=== PATIENT | female | born 1995 | race Caucasian/White ===

== ENCOUNTER → 2017-05-30 | Outpatient (CLI) | payer OTHER | LOC: M RAD 13:14 | DX: Z34.83 Encounter for supervision of other normal pregnancy, third trimester (principal); Z36.89 Encounter for other specified antenatal screening; Z3A.33 33 weeks gestation of pregnancy | CPT/HCPCS: 76811 ==

== ENCOUNTER → 2017-06-28 | Outpatient (REF) | payer OTHER | LOC: M LAB REF 13:04 | DX: Z34.83 Encounter for supervision of other normal pregnancy, third trimester (principal) | CPT/HCPCS: 87081 ==

== ENCOUNTER 2017-07-09 01:16 | Inpatient (IN) | payer OTHER ==
[2017-07-09 03:36] LABS: HEMATOCRIT 36.7 % (36.0-47.0); HEMOGLOBIN 12.3 g/dl (12.0-15.5); MEAN CORPUSCULAR HEMOGLOBIN 28.1 pg (27.0-33.0); MEAN CORPUSCULAR HGB CONC 33.5 g/dl (32.0-36.5); PLATELET COUNT, AUTOMATED 266 10^3/uL (150-450); RED BLOOD COUNT 4.37 10^6/uL (4.00-5.40); WHITE BLOOD COUNT 15.7 10^3/uL (4.0-10.0)
[2017-07-09] MEDS: LR 1,000 ML IV (04:24)
[2017-07-09] MEDS: FAMOTIDINE 20 MG TAB PO (05:18)
[2017-07-09] MEDS ORDERED: LR 1,000 ML IV (06:49)
[2017-07-09] MEDS ORDERED: DOCUSATE SODIUM 100 MG CAP PO (07:00)
[2017-07-09] MEDS ORDERED: ACETAMINOPHEN 500 MG TAB PO (07:00)
[2017-07-09] MEDS ORDERED: RHOGAM 300 MCG (1500 IU) INJ (J2790) IM (07:00)
[2017-07-09] MEDS ORDERED: DIBUCAINE 1% OINTMENT 30GM TOP (07:00)
[2017-07-09] MEDS ORDERED: MEASLES,MUMPS,RUBELLA VACCINE INJ (MMR-II) (90707) SC (07:00)
[2017-07-09] MEDS ORDERED: ONDANSETRON 4MG/2ML VIAL (J2405) IV (07:00)
[2017-07-09] MEDS ORDERED: PROMETHAZINE 25 MG TAB PO (07:00)
[2017-07-09] MEDS: IBUPROFEN 800 MG TAB PO (16:24)
[2017-07-10] MEDS: LACTATED RINGER'S 1000 ML IV (07:16)
[2017-07-10] MEDS: PRENATAL VITAMINS CHEWABLE TABLET PO ×2 (07:17→07:46)
[2017-07-10] MEDS: OXYTOCIN DRIP 30 UNITS in APPROPRIATE DILUENT 1 EA IV (07:17)
[2017-07-10] MEDS: IBUPROFEN 800 MG TAB PO (17:26)
== END 2017-07-10 17:40 | disposition home or self-care (01) | DRG 560 ==
LOC: M LDO 01:16 → M LDI 02:12 → M OBS 11:07
PROVIDERS: Obstetrics & Gynecology
PROC: 10E0XZZ Delivery of Products of Conception, External Approach (ICD-10-PCS; principal; 2017-07-09)
DX: O80 Encounter for full-term uncomplicated delivery (principal); Z37.0 Single live birth; Z3A.38 38 weeks gestation of pregnancy

== ENCOUNTER → 2018-02-07 | Outpatient (CLI) | payer OTHER ==
[~2018-02-07] MED LIST: IBUP-1114 PO; MAPA500T2 PO; PRENTAB9 PO; VALT500T PO
[2018-02-07 13:28] LABS: BASO % 0.4 % (0.0-1.0); EOS # 0.2 10^3/uL (0.0-0.50); EOS % 2.5 % (0.0-3.0); HEMATOCRIT 43.6 % (36.0-47.0); HEMOGLOBIN 14.7 g/dl (12.0-15.5); LYMPH # 2.2 10^3/uL (1.5-6.5); LYMPH % 26.2 % (24.0-44.0); MEAN CORPUSCULAR HEMOGLOBIN 29.2 pg (27.0-33.0); MEAN CORPUSCULAR HGB CONC 33.7 g/dl (32.0-36.5); MEAN CORPUSCULAR VOLUME 86.7 fl (80.0-96.0); MONO # 0.4 10^3/uL (0.0-0.8); MONO % 4.8 % (0.0-5.0); NEUTROPHILS # 5.5 10^3/uL (1.8-7.7); NEUTROPHILS % 65.7 % (36.0-66.0); PLATELET COUNT, AUTOMATED 248 10^3/uL (150-450); RED BLOOD COUNT 5.03 10^6/uL (4.00-5.40); WHITE BLOOD COUNT 8.4 10^3/uL (4.0-10.0)
[2018-02-07 13:51] LABS: ALT/SGPT 28 U/L (12-78); BILIRUBIN,TOTAL 0.2 MG/DL (0.2-1.0); CREATININE FOR GFR 0.55 MG/DL (0.55-1.30); GLOMERULAR FILTRATION RATE > 60.0 (>60); LDH LACTATE DEHYDROGENASE 170 U/L (84-246); URIC ACID 2.3 MG/DL (2.6-6.0)
[2018-02-07 14:10] LABS: RUBELLA IgG QUALITATIVE IMMUNE (IMMUNE)
[2018-02-07 14:31] LABS: TOTAL PROTEIN,RANDOM URINE 27.1 MG/DL (0.0-12.0)
[2018-02-07 14:39] LABS: HEPATITIS C VIRUS ABY INDEX 0.1 INDEX (<0.8); HIV 1&2 SCREEN CENTAUR NEGATIVE (NEGATIVE)
[2018-02-07 15:11] LABS: CHLAMYDIA DNA AMPLIFICATION NEGATIVE (NEGATIVE); GC DNA AMPLIFICATION NEGATIVE (NEGATIVE)
== END ==
LOC: M SMT 11:46
PROVIDERS: ATTEND Advanced Practice Midwife
DX: Z34.81 Encounter for supervision of other normal pregnancy, first trimester (principal); Z36.89 Encounter for other specified antenatal screening; Z3A.11 11 weeks gestation of pregnancy

== ENCOUNTER → 2018-02-27 | Outpatient (CLI) | payer OTHER ==
--- NOTE | 2018-02-28 04:56 | REP ---
Clinical: Anatomical evaluation. Comparison: None . Findings: Examination demonstrates a single live intrauterine in cephalic presentation. motion is identified by technologist. Placenta is noted posterior fundal and grade zero without evidence for placenta previa or abruption. Amniotic fluid volume is normal. Cervix measures 3.5 cm in length and appears closed. No evidence for nuchal cord. Gestational age by LMP 18 weeks 2 days with ANA 07/29/2018 . Gestational age by current measurements 18 weeks 3 days with ANA 07/28/2018 . FHR equals 136 beats per minute. BPD 4.1 cm 18 weeks 3 day HC 15.6 cm 18 weeks 4 days AC 12.8 cm 18 weeks 3 days FL 2.7 cm 18 weeks 2 days HL 2.6 cm 18 weeks 2 days HC/AC ratio 1.22 Estimated weight 235 grams ( 47 percentile). Anatomical assessment demonstrates normal structures including cranium, choroid plexus, cavum, cerebellum/posterior fossa, lungs, diaphragm, stomach, cord insertion/three-vessel cord, kidneys/bladder, spine, and extremities. Impression: 1. Single live intrauterine in cephalic presentation demonstrating appropriate interval growth. 2. Limited evaluation of the facial features and heart/ventricular outflow tract. Remainder of the anatomical assessment is complete and normal. Electronically Signed by Jimbo Mobley MD 02/28/2018 04:47 A
== END ==
LOC: M RAD 11:13
PROVIDERS: ATTEND Advanced Practice Midwife
DX: Z34.82 Encounter for supervision of other normal pregnancy, second trimester (principal); Z3A.18 18 weeks gestation of pregnancy

== ENCOUNTER → 2018-05-07 | Outpatient (CLI) | payer OTHER ==
--- NOTE | 2018-05-07 11:50 | REP ---
OB ULTRASOUND: Real-time sonographic evaluation of the gravid uterus is performed. There is a single living intrauterine gestation. Estimated gestational age is 28 weeks 1 day, EDC 07/29/2018. Today's measurements indicate appropriate growth. Biometry and Growth: BPD 70 mm = 28 weeks 0 days, 48th percentile HC 265 mm = 28 weeks 6 days, 65th percentile AC 241 mm = 28 weeks 3 days, 56th percentile FL 52 mm = 27 weeks 5 days, 40th percentile HC/AC ratio 1.10 within normal range. Estimated weight 1185 grams, 44th percentile. SEEN/GROSSLY UNREMARKABLE Lateral ventricles Yes Posterior fossa Yes Upper lip Yes Four-chamber heart Yes LVOT Yes RVOT Yes Stomach Yes Cord insertion Yes Three vessel cord Yes Kidneys Yes Bladder Yes Spine Yes Cervical length: Closed and measures 2.8 cm in length. heart rate: 149 beats per minute. position: Vertex, Placenta: Posterior and fundal and grade 1 with no previa or abruption. Amniotic fluid: Within normal limits, RONAK 16.1 within normal range of 9.4 to 22.8. S/D ratio: 4.03 above normal range of 2.5 to 3.95. RI: 0.75 at upper limits of normal range of 0.59 to 0.75. Electronically Signed by Ivan Yeager MD 05/07/2018 02:47 P
== END ==
LOC: M RAD 09:52
PROVIDERS: ATTEND Advanced Practice Midwife
DX: O99.512 Diseases of the respiratory system complicating pregnancy, second trimester (principal); Z3A.28 28 weeks gestation of pregnancy

== ENCOUNTER → 2018-07-06 | Outpatient (REF) | payer OTHER, MEDICAID ==
[~2018-07-06] MED LIST changes: +COLA100C5 PO
== END ==
LOC: M LAB REF 12:48
PROVIDERS: ATTEND Advanced Practice Midwife
DX: O99.333 Smoking (tobacco) complicating pregnancy, third trimester (principal); Z3A.00 Weeks of gestation of pregnancy not specified

== ENCOUNTER 2018-07-10 02:14 | Inpatient (IN) | payer OTHER, MEDICAID ==
[~2018-07-10] VITALS: Ht 162.6 cm; Wt 109.8 kg
[2018-07-10] VITALS (8 sets, daily range): BP systolic 109–137; BP diastolic 64–77
[~2018-07-10 02:14] MED LIST changes: -COLA100C5 PO
[2018-07-10] MEDS ORDERED: OXYTOCIN 30 UNITS IN 0.9% NaCl 500ML IV BAG (J2590) As Ordered ONE (02:49)
[2018-07-10 03:44] LABS: HEMATOCRIT 38.9 % (36.0-47.0); MEAN CORPUSCULAR HEMOGLOBIN 28.6 pg (27.0-33.0); MEAN CORPUSCULAR HGB CONC 33.4 g/dl (32.0-36.5); MEAN CORPUSCULAR VOLUME 85.7 fl (80.0-96.0); PLATELET COUNT, AUTOMATED 272 10^3/uL (150-450); RED BLOOD COUNT 4.54 10^6/uL (4.00-5.40); WHITE BLOOD COUNT 20.6 10^3/uL (4.0-10.0)
[2018-07-10] MEDS ORDERED: OXYTOCIN DRIP 30 UNITS in APPROPRIATE DILUENT 1 EA IV SCH (03:46)
[2018-07-10] MEDS ORDERED: MEASLES,MUMPS,RUBELLA VACCINE INJ (MMR-II) (90707) SC SCH (04:00)
[2018-07-10] MEDS ORDERED: METHYLERGONOVINE MALEATE 0.2 MG TAB PO PRN (04:00)
[2018-07-10] MEDS ORDERED: DIBUCAINE 1% OINTMENT 30GM TOP PRN (04:00)
[2018-07-10] MEDS ORDERED: RHOGAM 300 MCG (1500 IU) INJ (J2790) IM SCH (04:00)
[2018-07-10] MEDS ORDERED: ANUSOL HC CREAM 30GM TOP PRN (04:00)
[2018-07-10] MEDS ORDERED: IBUPROFEN 600 MG TAB PO PRN (04:00)
[2018-07-10] MEDS ORDERED: DOCUSATE SODIUM 100 MG CAP PO PRN (04:00)
[2018-07-10] MEDS ORDERED: ACETAMINOPHEN TAB 650MG DOSE (2X325MG) PO PRN (04:00)
[2018-07-10] MEDS ORDERED: ACETAMINOPHEN 500 MG TAB As Ordered ONE (04:11)
[2018-07-10] MEDS ORDERED: IBUPROFEN 800 MG TAB As Ordered ONE (04:11)
[2018-07-10] MEDS: ACETAMINOPHEN 500 MG TAB PO PRN ×2 (04:18→20:56)
[2018-07-10] MEDS: IBUPROFEN 800 MG TAB PO PRN ×2 (04:18→13:24)
[2018-07-10] MEDS ORDERED: CALCIUM CARBONATE 500 MG CHEW U/D As Ordered ONE (04:20)
[2018-07-10] MEDS ORDERED: CALCIUM CARBONATE 500 MG CHEW U/D PO ONE (04:30)
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
--- NOTE | 2018-07-10 05:23 | DN ---
DATE OF DELIVERY: 07/10/2018 Time of Delivery: 03:09 DATA: Spontaneous vaginal delivery. Delivered. PROVIDER: Monae Chacon CNM, WNP ANESTHESIA: None. EBL: 250 ML. FINDINGS: Male, 6 pounds, 1 ounce, 98577 grams, scores 9/9. The patient is a 23-year-old now 5, para 2-1-2-3 at 37 weeks, 2 days gestation who presented to labor and delivery in active labor. The patient progressed to fully dilated at 0305 after she was artificially ruptured at 0305 to a large amount of clear fluid. She pushed to a living male in the left occipitoanterior (JOE) position with restitution to left occipitotransverse (LOT) at 0309. The anterior shoulder delivered with ease, and the corpus immediately followed. The baby was placed [id number] active and crying with stimulation. The cord was clamped times two after 3 minutes and cut by the father of the baby. A three-vessel cord was noted. The placenta delivered spontaneously and intact at 0318. Uterine hemostasis was achieved via rapid infusion of intravenous (IV) Pitocin and uterine fundal massage. The cervix, perineum, and vagina were inspected and found to be intact. The mother plans to formula-feed her . They plan on naming him Ambrocio. Both mom and baby are in stable condition. All counts of sponges and instruments are correct. MTDD
[2018-07-10] MEDS: PRENATAL VITAMINS CHEWABLE TABLET PO SCH (07:47)
[2018-07-11 06:00] VITALS: BP 107/53
[2018-07-11] MEDS: IBUPROFEN 800 MG TAB PO PRN (06:21)
[2018-07-11] MEDS: PRENATAL VITAMINS CHEWABLE TABLET PO SCH (08:33)
[2018-07-11] MEDS: ACETAMINOPHEN 500 MG TAB PO PRN (16:12)
[2018-07-11 18:01] VITALS: BP 129/72
[2018-07-12] MEDS: ACETAMINOPHEN 500 MG TAB PO PRN (05:18)
[2018-07-12 05:47] VITALS: BP 110/64
[2018-07-12] MEDS: PRENATAL VITAMINS CHEWABLE TABLET PO SCH (08:28)
[2018-07-12] MEDS ORDERED: MAPA500T2 PO (11:18)
[2018-07-12] MEDS ORDERED: IBUP-1114 PO (11:18)
[2018-07-12] MEDS ORDERED: COLA100C5 PO (11:18)
== END 2018-07-12 11:33 | disposition home or self-care (01) | DRG 560 ==
LOC: M LDO 02:14 → M LDI 02:56 → M OBS 05:09
PROVIDERS: ADMIT Advanced Practice Midwife; ATTEND Advanced Practice Midwife
PROC: 10E0XZZ Delivery of Products of Conception, External Approach (ICD-10-PCS; principal; 2018-07-10)
DX: O98.52 Other viral diseases complicating childbirth (principal); B00.9 Herpesviral infection, unspecified; Z3A.37 37 weeks gestation of pregnancy; F17.210 Nicotine dependence, cigarettes, uncomplicated; O99.334 Smoking (tobacco) complicating childbirth; Z37.0 Single live birth; Z91.419 Personal history of unspecified adult abuse

== ENCOUNTER 2018-10-05 07:13 | Day surgery (SDC) | payer OTHER ==
[~2018-10-05] VITALS: Ht 162.6 cm; Wt 100.2 kg
[~2018-10-05 07:13] MED LIST changes: +COLA100C5 PO; +LR 1,000 ML IV ONE
[2018-10-05 07:47] LABS: HEMATOCRIT 47.5 % (36.0-47.0); HEMOGLOBIN 15.9 g/dl (12.0-15.5); MEAN CORPUSCULAR HEMOGLOBIN 28.7 pg (27.0-33.0); MEAN CORPUSCULAR HGB CONC 33.5 g/dl (32.0-36.5); MEAN CORPUSCULAR VOLUME 85.7 fl (80.0-96.0); PLATELET COUNT, AUTOMATED 249 10^3/uL (150-450); RED BLOOD COUNT 5.54 10^6/uL (4.00-5.40); WHITE BLOOD COUNT 12.4 10^3/uL (4.0-10.0)
[2018-10-05] MEDS ORDERED: LIDOCAINE 2% INJ 100 MG/5 ML SDV (FOR ANES.) As Ordered ONE (07:48)
[2018-10-05] MEDS ORDERED: PROPOFOL 200 MG/20 ML VIAL As Ordered ONE (07:48)
[2018-10-05] MEDS ORDERED: MIDAZOLAM INJ 2 MG/2 ML VIAL (J2250) As Ordered ONE (07:50)
[2018-10-05] MEDS ORDERED: fentaNYL 100 MCG/2 ML INJECTION (J3010) As Ordered ONE ×2 (07:50→10:41)
[2018-10-05] MEDS ORDERED: dexameTHASONE 4 MG/ML 1ML VIAL (J1100) As Ordered ONE (08:33)
[2018-10-05] MEDS ORDERED: METOCLOPRAMIDE INJ 10MG/2ML VIAL (J2765) As Ordered ONE (08:33)
[2018-10-05] MEDS ORDERED: BUPIVACAINE HCL 0.25% 30 ML VIAL As Ordered ONE (09:49)
[2018-10-05] MEDS ORDERED: ROCURONIUM BROMIDE 50 MG/5 ML VIAL As Ordered ONE (10:17)
[2018-10-05] MEDS ORDERED: SUGAMMADEX SODIUM 500 MG/5 ML VIAL (BRIDION) As Ordered ONE (10:31)
[2018-10-05] MEDS ORDERED: KETOROLAC 60 MG/2 ML VIAL (J1885) As Ordered ONE (11:03)
[2018-10-05] MEDS ORDERED: oxyCODONE 5MG TAB As Ordered ONE (11:32)
[2018-10-05] MEDS ORDERED: PERC5TAB12 PO (11:42)
[2018-10-05] MEDS ORDERED: LR 1,000 ML IV SCH ×2 (11:45)
[2018-10-05] MEDS ORDERED: ONDANSETRON 4MG/2ML VIAL (J2405) IV PRN (11:45)
[2018-10-05] MEDS ORDERED: oxyCODONE 5MG TAB PO PRN (11:45)
[2018-10-05] MEDS ORDERED: fentaNYL 100 MCG/2 ML INJECTION (J3010) IV PRN (11:45)
[2018-10-05] MEDS ORDERED: METOCLOPRAMIDE INJ 10MG/2ML VIAL (J2765) IV PRN (11:45)
[2018-10-05] MEDS ORDERED: PROMETHAZINE INJ 25 MG/ML VIAL (J2550) IV PRN (11:45)
[2018-10-05] MEDS ORDERED: HYDROMORPHONE HCL 0.5 MG/ 0.5 ML SYRINGE (J1170 PER 1) IV PRN (11:45)
[2018-10-05 12:45] VITALS: BP 116/58
--- NOTE | 2018-10-08 19:05 | RO ---
DATE OF PROCEDURE: PREOPERATIVE DIAGNOSIS: Satisfied parity. POSTOPERATIVE DIAGNOSIS: Satisfied parity. PROCEDURE PERFORMED: Laparoscopic bilateral salpingectomy. SURGEON: Amanda Robles DO ROSIN BARREL FILLER: Viky Haddad OMS-III ANESTHESIA TYPE: General endotracheal. SPECIMENS SENT TO PATHOLOGY: Bilateral fallopian tubes. ESTIMATED BLOOD LOSS: 5 mL. FLUIDS REPLACED: 1 liter lactated Ringer's. DRAINS: Morris catheter; 1300 mL urine output. COMPLICATIONS: None. PREOPERATIVE ANTIBIOTICS: None indicated. INTRAOPERATIVE FINDINGS: Normal uterus and bilateral adnexa. normal liver edge and gallbladder. Appendix not visualized. INDICATION: The patient is a 23-year-old, (G) 5, para (P) 3-0-2-3. She has elected to proceed with an opportunistic laparoscopic bilateral salpingectomy for her satisfied parity. She has been counseled on all available control method options to include long-acting reversible contraception. She has been counseled regarding the risk of regret given her young age. PROCEDURE: The patient was counseled, consented on the risks, benefits, indications and alternatives of the procedure. Informed consent was obtained. She was taken to the operating room with an IV running and placed on the operating table in a dorsal supine position where general anesthesia was administered and airway secured without any difficulty. She was then placed in a low lithotomy position. She was prepared and draped in normal sterile fashion. The Morris catheter was placed with sterile conditions. A time-out was performed per protocol. A sterile speculum was placed with good visualization of the cervix. The anterior lip of the cervix was grasped with single-tooth tenaculum and downward traction was applied. The ZUMI uterine manipulator was placed in typical fashion. The single-tooth tenaculum was removed. The sterile speculum was removed. Glove switch was performed. Attention was turned to the abdomen. 0.25% Marcaine was injected into the umbilicus. A 5 mm umbilical incision was placed through the umbilicus with the #11 blade and through this incision a Veress needle was placed into the intraperitoneal cavity. Intraperitoneal placement was confirmed with ease of flow of normal saline, negative return on aspiration and a positive drop test. The opening pressure was 3 mmHg. The abdomen was then insufflated with 2.5 liters of CO2 gas. The Veress needle was removed. A size 5 mm Xcel laparoscopic trocar was introduced into the intraperitoneal cavity under direct visualization without any difficulty. No incidental bleeding or injury was noted. The patient was then placed in steep Trendelenburg. Two additional laparoscopic port sites were placed through 5 mm incisions in the left lower abdomen. Through these incisions 5 mm and 8 mm Xcel cannulas were placed under direct visualization without any difficulty. Attention was first turned to the left fallopian tube. The left fallopian tube was followed out to the fimbriated end. The fimbriated end was grasped and elevated. The underlying mesosalpinx/broad ligament was sequentially clamped, coagulated and transected with the 5 mL LigaSure device until the level of cornu was reached. At the level of cornu, the fallopian tube was clamped, coagulated and transected, thus amputating the fallopian tube. The fallopian tube was brought through the cannula without any difficulty. In similar fashion, the right fallopian tube was followed out to the fimbriated end and grasped and elevated. The underlying mesosalpinx/broad ligament was sequentially clamped, coagulated and transected to the level of the cornu with the 5 mm LigaSure device. At the level of cornu the fallopian tube was cross-clamped, coagulated and transected, thus amputating the right fallopian tube. The right fallopian tube was brought to the cannula without any difficulty. Excellent hemostasis was noted throughout the pelvis, particularly the surgical sites. Minimal to no bleeding was noted. The gas was released from the abdomen. Again, no bleeding was noted during this time. The patient was then taken out of Trendelenburg. The gas was completely released from the abdomen. The cannulas were removed. The incisions were closed with #4-0 Monocryl in subcuticular fashion reinforced with Dermabond. All instruments were then removed from the vagina to include the ZUMI uterine manipulator and the single-tooth tenaculum and speculum. Sponge, lap, needle, and instrument counts were correct per protocol. She was transferred to the postanesthesia care unit (PACU) in good and stable condition. The patient had tolerated the entire procedure very well. JEAN-PAUL
== END 2018-10-05 12:55 | disposition home or self-care (01) ==
LOC: M SDC 07:13
PROVIDERS: ATTEND Obstetrics & Gynecology
DX: Z30.2 Encounter for sterilization (principal); R51 Headache; Z88.8 Allergy status to other drugs, medicaments and biological substances; Z79.899 Other long term (current) drug therapy
CPT/HCPCS: 36415; 58661; 84702; 85027; 86850; 86900; 86901; 88302; J1100; J1885; J2250; J2765; J3010

== ENCOUNTER → 2018-11-08 | Outpatient (REF) | payer OTHER ==
[~2018-11-08] MED LIST changes: -LR 1,000 ML IV ONE; +PERC5TAB12 PO
[2018-11-08 16:47] LABS: CHLAMYDIA DNA AMPLIFICATION NEGATIVE (NEGATIVE); GC DNA AMPLIFICATION NEGATIVE (NEGATIVE)
== END ==
LOC: M LAB REF 13:02
PROVIDERS: ATTEND Advanced Practice Midwife
DX: Z12.4 Encounter for screening for malignant neoplasm of cervix (principal)

== ENCOUNTER → 2021-01-30 | Outpatient (CLI) | payer MEDICAID, OTHER ==
[~2021-01-30] MED LIST changes: +FAMO20TA5 PO
== END ==
LOC: M LABSMTC 09:19
PROVIDERS: ATTEND Anesthesiology
DX: Z01.812 Encounter for preprocedural laboratory examination (principal); Z11.52 Encounter for screening for COVID-19

== ENCOUNTER → 2021-03-06 | Outpatient (CLI) | payer OTHER | LOC: M LABSMTC 11:08 | PROVIDERS: ATTEND Anesthesiology | DX: Z01.818 Encounter for other preprocedural examination (principal); Z11.52 Encounter for screening for COVID-19 ==

== ENCOUNTER 2021-03-11 09:04 | Day surgery (SDC) | payer OTHER ==
[~2021-03-11] VITALS: Ht 162.6 cm; Wt 107.0 kg
[~2021-03-11 09:04] MED LIST changes: +NS 1,000 ML IV ONE
[2021-03-11] MEDS ORDERED: propofoL 200 MG/20 ML VIAL As Ordered ONE (12:25)
[2021-03-11] MEDS ORDERED: LIDOCAINE 2% 100MG/5ML SDV (FOR ANES.) As Ordered ONE (12:26)
[2021-03-11] MEDS ORDERED: PHENYLephrine 500MCG 5ML (100MCG/ML) SYRINGE As Ordered ONE (12:31)
[2021-03-11 13:14] VITALS: BP 137/70
== END 2021-03-11 13:14 | disposition home or self-care (01) ==
LOC: M OPP 09:04
PROVIDERS: ATTEND Internal Medicine Gastroenterology
DX: K63.5 Polyp of colon (principal); R10.31 Right lower quadrant pain; Z80.0 Family history of malignant neoplasm of digestive organs; Z80.3 Family history of malignant neoplasm of breast; Z88.8 Allergy status to other drugs, medicaments and biological substances; F17.210 Nicotine dependence, cigarettes, uncomplicated
CPT/HCPCS: 45380; 88305; J2370

== ENCOUNTER → 2023-09-08 | Outpatient (CLI) | payer OTHER, MEDICAID ==
[~2023-09-08] MED LIST changes: +IBUP80TA PO; -NS 1,000 ML IV ONE; +OMEP40CA5 PO
== END ==
LOC: M PAIN 08:00
PROVIDERS: ATTEND Nurse Practitioner Family
DX: M54.16 Radiculopathy, lumbar region (principal); G89.29 Other chronic pain; Z79.899 Other long term (current) drug therapy; F17.200 Nicotine dependence, unspecified, uncomplicated; Z88.8 Allergy status to other drugs, medicaments and biological substances

== ENCOUNTER → 2023-09-27 | Outpatient (CLI) | payer OTHER | LOC: M PLAIMG 07:07 | PROVIDERS: ATTEND Nurse Practitioner Family | DX: M54.16 Radiculopathy, lumbar region (principal) ==

== ENCOUNTER → 2023-10-13 | Outpatient (CLI) | payer OTHER, MEDICAID | LOC: M PAIN 11:30 | PROVIDERS: ATTEND Nurse Practitioner Family | DX: M79.18 Myalgia, other site (principal); G89.29 Other chronic pain; Z79.899 Other long term (current) drug therapy; F17.200 Nicotine dependence, unspecified, uncomplicated; Z88.8 Allergy status to other drugs, medicaments and biological substances ==

== ENCOUNTER → 2023-11-06 | Outpatient (CLI) | payer OTHER | LOC: M RAD 08:09 | PROVIDERS: ATTEND Surgery | DX: R10.11 Right upper quadrant pain (principal); K80.20 Calculus of gallbladder without cholecystitis without obstruction; K82.8 Other specified diseases of gallbladder ==